=== PATIENT | female | born 1995 | race Two or more races ===

== ENCOUNTER 2025-05-11 11:29 | Emergency (ER) | payer BC, MEDICAID, SELFPAY ==
[2025-05-11 11:30] VITALS: BMI 36.8
[2025-05-11 12:12] VITALS: BP 128/78; PULSE 76; RESP 18; TEMP 36.9; O2SAT 98
--- NOTE | 2025-05-11 12:21 | EKG_ITS ---
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
--- NOTE | 2025-05-11 12:21 | XR_ITS ---
Examination: PA lateral chest 2 views TECHNIQUE: Upright PA lateral chest 2 views Date and time: May 11, 2025 1337 hours, comparison September 18, 2023 INDICATIONS: Shortness of breath chest pain beginning 3 days ago. FINDINGS: Normal heart size. Minor atelectasis versus early pneumonia right base, clinical correlation advised No pulmonary edema Intact osseous structures IMPRESSION: Atelectasis versus minor pneumonia right base, the appearance should be clinically correlated
--- NOTE | 2025-05-11 12:28 | PD.EDCHEST ---
ED Chest Pain RME/HPI General Chief Complaint: Chest Pain Stated Complaint: LEFT SIDE CHEST AND BACK PAIN X3DAYS Time Seen by Provider: 05/11/25 11:33 Source: patient Arrival date/time: 05/11/25 11:29 Mode of arrival: ambulatory Limitations: no limitations Related Data Home Medications ?Medication ?Instructions ?Recorded ?Confirmed medroxyprogesterone 10 mg tablet 10 mg PO DAILY 05/09/24 05/09/24 Previous Rx's ?Medication ?Instructions ?Recorded amoxicillin 875 mg-potassium 1 tab PO BID 7 days #14 tabs 05/11/25 clavulanate 125 mg tablet Allergies Allergy/AdvReac Type Severity Reaction Status Date / Time No Known Allergies Allergy Verified 05/11/25 11:33 Review of Systems Review of Systems Systems Reviewed: All systems reviewed, normal except as documented Constitutional Constitutional: Reports system reviewed and no additional complaints, except as documented, Denies fatigue, Denies fever(s), Denies headache(s) and Denies weakness Eyes Eyes: Reports system reviewed and no additional complaints, except as documented, Denies blurry vision and Denies change in vision ENT Ears, Nose, Mouth, and Throat: Reports system reviewed and no additional complaints, except as documented, Denies otalgia, Denies headache(s), Denies nasal congestion, Denies throat swelling and Denies vertigo Cardiovascular Cardiovascular: Reports system reviewed and no additional complaints, except as documented, Reports chest pain, Reports chest pain at rest, Reports chest pain with activity, Denies dyspnea and Denies dyspnea on exertion Respiratory Respiratory: Reports system reviewed and no additional complaints, except as documented, Denies chest congestion, Denies cough, Denies dyspnea, Denies dyspnea on exertion and Denies wheezing Gastrointestinal Gastrointestinal: Reports system reviewed and no additional complaints, except as documented, Denies abdominal pain, Denies cramping, Denies nausea and Denies vomiting Genitourinary Genitourinary: Reports system reviewed and no additional complaints, except as documented Musculoskeletal Musculoskeletal: Reports system reviewed and no additional complaints, except as documented and Denies back pain Integumentary/Breasts Skin/Breast: Reports system reviewed and no additional complaints, except as documented and Denies wounds Neurologic Neurologic: Reports system reviewed and no additional complaints, except as documented, Denies confusion, Denies headache(s), Denies lack of coordination, Denies vertigo and Denies weakness Psychiatric Psychiatric: Reports system reviewed and no additional complaints, except as documented, Denies anxiety, Denies confusion, Denies depression, Denies paranoia, Denies suicidal ideation and Denies tactile hallucinations Endocrine Endocrine: Reports system reviewed and no additional complaints, except as documented and Denies fatigue Hematologic/Lymphatic Hematologic/Lymphatic: Reports system reviewed and no additional complaints, except as documented and Denies lymphadenopathy Allergic/Immunologic Allergic/Immunologic: Reports system reviewed and no additional complaints, except as documented, Denies throat swelling, Denies urticaria and Denies wheezing Past Medical History Past Medical History NEUROLOGIC: Negative Neurological Disorders or Seizures CARDIAC: Negative Cardiac Disorders or Congestive Heart Failure RESPIRATORY: Negative Chronic Obstructive Pulmonary Disease (COPD) GASTROINTESTINAL: Negative Gastrointestinal Disorders GENITOURINARY: Negative Renal Disease REPRODUCTIVE: Positive Genital Herpes ENDOCRINE: Negative Diabetes Mellitus Type 1 or Diabetes Mellitus Type 2 HEMATOLOGIC: Negative Blood Disorders OTHER HISTORY: Negative Blood Transfusions, Anesthesia Reactions or Cancer Family History FAMILY HISTORY: Positive Family Cancer (mom lymphatic cancer) and Family Surgery (sister); Negative Family Anesthesia Reaction Social History SMOKING STATUS: Never smoker SUBSTANCE USE: does not use ED Exam General Limitations: Present no limitations General appearance: Present alert and in no apparent distress Head Head exam: Present atraumatic Eye Eye exam: Present normal appearance, PERRL and EOMI ENT ENT exam: Present normal exam, normal oropharynx and mucous membranes moist Neck Neck exam: Present normal inspection, full ROM and trachea midline Chest Chest inspection: Present normal inspection and symmetric chest wall rise Respiratory Respiratory exam: Present normal lung sounds bilaterally; Absent respiratory distress, wheezes, stridor, accessory muscle use or prolonged expiratory phase Cardiovascular Cardiovascular exam: Present regular rate, normal rhythm and normal heart sounds; Absent tachycardia Abdominal Exam Abdominal exam: Present soft and normal bowel sounds; Absent tenderness Extremities Exam Extremities exam: Present normal inspection and full ROM Back Exam Back exam: Present normal inspection and full ROM Neurological Exam Neurological exam: Present alert, oriented X3 and CN II-XII intact Psychiatric Psychiatric exam: Present normal affect and normal mood Skin Skin exam: Present warm, dry, intact and normal color Course Quality Measures none Orders Category Date Time Status EKG (ED ONLY) *Do not use* NOW Care 05/11/25 12:21 Completed EKG (ED Only) Stat Exams 05/11/25 12:21 Draft XR chest 2V Stat Exams 05/11/25 12:21 Completed B-Type Natriuretic Peptide Stat Lab 05/11/25 12:41 Completed CBC Stat Lab 05/11/25 12:41 Completed Comprehensive Metabolic Panel Stat Lab 05/11/25 12:41 Completed Troponin I Stat Lab 05/11/25 12:41 Completed Urinalysis, C/S if Indicated Stat Lab 05/11/25 13:22 Received Vital Signs Vital signs: Vital Signs Temperature 98.5 F 05/11/25 12:12 Pulse Rate 76 05/11/25 12:12 Respiratory Rate 18 05/11/25 12:12 Blood Pressure 128/78 05/11/25 12:12 Pulse Oximetry (%) 98 05/11/25 12:12 Oxygen Delivery Method Room Air 05/11/25 12:12 Chest Pain MDM Narrative MDM Narrative:: 30-year-old female with no known medical history presents to the emergency room with a chief complaint of left-sided chest pain and back pain x 3 days Patient is hemodynamically stable Physical examination shows clear bilateral lung sounds there is no wheezing stridor or any abnormal breath sound. The patient is not tachypneic tachycardic or febrile Patient is complaining of 8 out of 10 sternal chest pain. EKG shows normal sinus rhythm at [address] deviation CBC CMP troponin were all negative X-ray showed community-acquired pneumonia. Antibiotics sent to the patient's pharmacy Patient was discharged and educated to follow-up with primary care provider in the next 24 to 48 hours and return to the emergency room for any evidence of worsening signs or symptoms Patient data External records reviewed:: [facility] previous records Clinical information provided by:: patient Social determinants that could affect healthcare access:: none Patient has the following chronic illnesses:: No chronic illness How is presenting disease/condition affected by chronic disease/condition?: no chronic disease Evaluation data The following diagnostics were reviewed and interpreted by me:: lab results and radiology exam(s) Lab and/or radiology exams considered but not ordered:: Labs and radiology exams considered and ordered Interpretation Summary: Chest [id number]: Normal heart size. Minor atelectasis versus early pneumonia right base, clinical correlation advised No pulmonary edema Intact osseous structures IMPRESSION: Atelectasis versus minor pneumonia right base, the appearance should be clinically correlated Medications / Prescriptions Medications or Prescriptions considered but not ordered:: No medication given Medication administrations:: No medication given Consultations Consultation(s) initiated? (list below): No Diagnosis Chest Pain Differential Diagnosis: stable angina, atypical chest pain, st elevation myocardial infarction, chest pain and other (Community-acquired pneumonia) Most likely diagnosis given after review of the tests above:: Community-acquired pneumonia Admission Indicated Admission indicated?: not indicated Admission Request Was there a request for admission?: No Disposition Plan Disposition Plan: Discharge Discharge Attestation Discharge Attestation: The patient and all family members were given an opportunity to ask questions and understood the discharge instructions. Discharge instructions specifically effects, indications for sooner follow up or return to the emergency department, and the expected course of current diagnosis. Patient condition: Stable Discharge Plan Plan Patient Disposition: HOME (Self Care) Discharge Disposition comment: Stable Prescriptions/Referrals Prescriptions/Med Rec: New amoxicillin-pot clavulanate 875-125 mg tablet 1 tab PO BID 7 Days Qty: 14 0RF No Action medroxyprogesterone 10 mg tablet 10 mg PO DAILY Patient Comments: TAKE 1 TABLET BY MOUTH ONCE A DAY ON DAYS 14-28 EACH MONTH. Referrals: No Primary/Family,Physician [Primary Care Provider] - In 1 week Problem List Clinical Impression: Chest pain, Community acquired pneumonia Patient/Caregiver Discharge Instructions Education Materials: ED Pneumonia (Adult) Additional Instructions: Please follow-up with your primary care provider in the next 24 to 48 hours Your x-ray showed pneumonia. Antibiotics are sent to your pharmacy please pick it up and take it as indicated For any evidence of worsening signs or symptoms return to the emergency room immediately Print Language: Salvadorean Stand Alone Forms: Wen Award Info., Patient Portal Info Letter PA/AAMIR Supervising Physician PA/AAMIR Supervising Physician: Dr. Barrios
[2025-05-11 12:57] LABS: Basophils # (Auto) 0.0 Thou/mm3 (0.0-0.2); Basophils % (Auto) 0 % (0-2.5); Eosinophils # (Auto) 0.1 Thou/mm3 (0.0-0.5); Eosinophils % (Auto) 2 % (0-10); Hematocrit 36.4 % (36.0-46.0); Hemoglobin 12.4 g/dL (12.0-16.0); Immature Granulocytes Auto 0.03 Thou/mm3 (0.00-0.00); Lymphocytes # (Auto) 2.3 Thou/mm3 (1.0-4.8); Lymphocytes % (Auto) 28 % (10-50); Mean Corpuscular HGB Conc 34.1 g/dl (31.0-37.0); Mean Corpuscular Hemoglobin 32.0 pg (25.0-35.0); Mean Corpuscular Volume 94 fL (80-100); Monocytes # (Auto) 0.5 Thou/mm3 (0.0-0.8); Monocytes % (Auto) 6 % (0-12); Neutrophils # (Auto) 5.4 Thou/mm3 (1.8-7.7); Neutrophils % (Auto) 64 % (37-80); Nucleated Red Blood Cell # 0.00 Thou/mm3 (0.00-0.00); Nucleated Red Blood Cell % 0 /100 WBC (0); Platelet Count 202 Thou/mm3 (140-440); RDW Standard Deviation 42.8 fL (36.4-46.3); Red Blood Count 3.87 Miln/mm3 (4.00-5.20); White Blood Count 8.3 Thou/mm3 (3.6-11.0)
[2025-05-11 13:15] LABS: B-Type Natriuretic Peptide < 20 pg/mL (0-100)
[2025-05-11 13:28] LABS: Alanine Aminotransferase 11 U/L (10-49); Albumin, Serum 4.2 gm/dL (3.5-5.0); Albumin/Globulin Ratio 1.3 (1.2-2.2); Alkaline Phosphatase 53 U/L (46-116); Anion Gap 6 (7-16); Aspartate Amino Transferase 14 U/L (0-34); BUN/Creatinine Ratio 10 Ratio (12-20); Bilirubin,Total 1.0 mg/dL (0.3-1.2); Blood Urea Nitrogen 7 mg/dL (9-23); Calcium 9.6 mg/dL (8.3-10.6); Calcium (Corrected) 9.6 mg/dL (8.5-10.1); Carbon Dioxide 29.4 mMol/L (20.0-31.0); Chloride 104 mMol/L (98-107); Creatinine (Component) 0.7 mg/dL (0.6-1.3); Estimated Creatinine Clearance 134.5 mL/min (>60); Globulin 3.2 gm/dL (2.3-3.5); Glucose 83 mg/dL (74-106); Osmolality,Calculated 274 (275-295); Potassium 4.0 mMol/L (3.4-5.1); Sodium 139 mMol/L (136-145); Total Protein 7.4 gm/dL (5.7-8.2); Troponin I < 0.002 ng/mL (0.0-0.045); eGFR > 60 See Note
[2025-05-11 13:32] LABS: Collection Type, Urine Clean Catch
[2025-05-11 13:58] LABS: Bilirubin,Urine Negative (Negative); Blood,Urine Negative (Negative); Clarity,Urine Clear (Clear/Hazy); Color,Urine Lt-Yellow (Lt Yel-Yel); Culture Indicated,Urine Not Indicated; Glucose, Urine Negative (Negative); Hyaline Casts,Urine < 1 /hpf (0-1); Ketones,Urine Negative (Negative); Leukocyte Esterase,Urine Negative (Negative); Nitrite,Urine Negative (Negative); PH,Urine 6.0 (5.0-7.0); Protein,Urine Negative (Neg - Trace); RBC,Urine 2 /hpf (0-3); Specific Gravity,Urine 1.020 (1.001-1.035); Squamous Epithelial Cell,Urine 1 /hpf (0-5); Urobilinogen,Urine Negative mg/dL (0.0-1.0); WBC,Urine 1 /hpf (0-5)
== END 2025-05-11 14:48 | disposition home or self-care (01) ==
PROVIDERS: Nurse Practitioner Family; Emergency Provider Emergency Medicine
DX: J18.9 Pneumonia, unspecified organism (principal)
CPT/HCPCS: 36415; 71046; 80053; 81001; 83880; 84484; 85025; 93005; 99283

== ENCOUNTER 2025-05-12 08:58 | Emergency (ER) | payer BC, MEDICAID, SELFPAY ==
--- NOTE | 2025-05-12 09:11 | XR_ITS ---
Examination: PA lateral chest 2 views TECHNIQUE: Upright PA lateral chest 2 views Date and time: May 12, 2025 0916 hours, comparison 05/11/2025 INDICATIONS: Chest pain today. FINDINGS: Suspicious for early pneumonia in the right middle lobe on the lateral view Normal heart size No pulmonary edema IMPRESSION: Suspicious for early pneumonia in the right middle lobe on the lateral view
--- NOTE | 2025-05-12 09:11 | EKG_ITS ---
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
--- NOTE | 2025-05-12 09:11 | PD.EDRME ---
Rapid Medical Screening Exam [facility] Arrival date/time: 05/12/25 08:58 30-year-old female with no known medical history presents to the emergency room with a chief complaint of 8 out of 10 left-sided sternal chest pain that radiates to her upper back. The patient is also having some left upper quadrant abdominal pain. I have greeted and performed a focused initial assessment of this patient. A comprehensive ED assessment and evaluation of the patient, analysis of all test results, and completion of the medical decision making process will be conducted by additional ED providers. Chief Complaint: Shortness of Breath/Dyspnea Vital signs reviewed by provider: Yes
[2025-05-12 09:12] VITALS: BP 108/71; PULSE 86; RESP 18; TEMP 37.1; O2SAT 96; BMI 36.8
[2025-05-12 09:42] LABS: Collection Type, Urine Clean Catch
[2025-05-12 09:49] LABS: Basophils # (Auto) 0.0 Thou/mm3 (0.0-0.2); Basophils % (Auto) 0 % (0-2.5); Eosinophils # (Auto) 0.1 Thou/mm3 (0.0-0.5); Eosinophils % (Auto) 1 % (0-10); Hematocrit 39.2 % (36.0-46.0); Hemoglobin 13.2 g/dL (12.0-16.0); Immature Granulocytes Auto 0.03 Thou/mm3 (0.00-0.00); Lymphocytes # (Auto) 1.8 Thou/mm3 (1.0-4.8); Lymphocytes % (Auto) 25 % (10-50); Mean Corpuscular HGB Conc 33.7 g/dl (31.0-37.0); Mean Corpuscular Hemoglobin 31.4 pg (25.0-35.0); Mean Corpuscular Volume 93 fL (80-100); Monocytes # (Auto) 0.3 Thou/mm3 (0.0-0.8); Monocytes % (Auto) 5 % (0-12); Neutrophils # (Auto) 4.8 Thou/mm3 (1.8-7.7); Neutrophils % (Auto) 68 % (37-80); Nucleated Red Blood Cell # 0.00 Thou/mm3 (0.00-0.00); Nucleated Red Blood Cell % 0 /100 WBC (0); Platelet Count 201 Thou/mm3 (140-440); RDW Standard Deviation 42.5 fL (36.4-46.3); Red Blood Count 4.20 Miln/mm3 (4.00-5.20); White Blood Count 7.1 Thou/mm3 (3.6-11.0)
[2025-05-12 10:08] LABS: B-Type Natriuretic Peptide 27 pg/mL (0-100)
[2025-05-12 10:10] LABS: Alanine Aminotransferase 12 U/L (10-49); Albumin, Serum 4.6 gm/dL (3.5-5.0); Albumin/Globulin Ratio 1.3 (1.2-2.2); Alkaline Phosphatase 54 U/L (46-116); Anion Gap 7 (7-16); Aspartate Amino Transferase 18 U/L (0-34); BUN/Creatinine Ratio 10 Ratio (12-20); Bilirubin,Total 1.1 mg/dL (0.3-1.2); Blood Urea Nitrogen 7 mg/dL (9-23); Calcium 9.8 mg/dL (8.3-10.6); Calcium (Corrected) 9.8 mg/dL (8.5-10.1); Carbon Dioxide 27.4 mMol/L (20.0-31.0); Chloride 105 mMol/L (98-107); Creatinine (Component) 0.7 mg/dL (0.6-1.3); Estimated Creatinine Clearance 134.5 mL/min (>60); Globulin 3.5 gm/dL (2.3-3.5); Glucose 88 mg/dL (74-106); Magnesium 1.9 mg/dL (1.6-2.6); Osmolality,Calculated 274 (275-295); Potassium 3.8 mMol/L (3.4-5.1); Sodium 139 mMol/L (136-145); Total Protein 8.1 gm/dL (5.7-8.2); Troponin I < 0.002 ng/mL (0.0-0.045); eGFR > 60 See Note
[2025-05-12 10:13] LABS: Bilirubin,Urine Negative (Negative); Blood,Urine 1+ (Negative); Clarity,Urine Clear (Clear/Hazy); Color,Urine Lt-Yellow (Lt Yel-Yel); Culture Indicated,Urine Not Indicated; Glucose, Urine Negative (Negative); Ketones,Urine Negative (Negative); Leukocyte Esterase,Urine Negative (Negative); Nitrite,Urine Negative (Negative); PH,Urine 6.0 (5.0-7.0); Protein,Urine Negative (Neg - Trace); RBC,Urine 3 /hpf (0-3); Specific Gravity,Urine 1.021 (1.001-1.035); Squamous Epithelial Cell,Urine 8 /hpf (0-5); Urobilinogen,Urine Negative mg/dL (0.0-1.0); WBC,Urine 1 /hpf (0-5)
[2025-05-12 10:24] LABS: INR 1.0 (0.9-1.3); Partial Thromboplastin Time 26.3 Seconds (22.0-36.0); Prothrombin Time 11.4 Seconds (9.0-12.2)
--- NOTE | 2025-05-12 11:43 | EDNOTE_ITS ---
ED General RME/HPI General Chief complaint: Shortness of Breath/Dyspnea Stated complaint: SOB, CHEST PAIN, L) FLANK PAIN, LIGHTHEADED, FEVER Time Seen by Provider: 05/12/25 11:29 Arrival date/time: 05/12/25 08:58 CC: Left flank/side pain with radiation up to the left shoulder and down into the left anterior chest and breast. HPI 2 days ago progressive increase in severity. With patient was seen yesterday for the same complaint was started antibiotics for pneumonia. Patient denies productive cough fever chills shortness of breath or difficulty breathing but states she cannot take a deep breath without significant chest pain. Patient states she is consistently tender when she sneezes coughs or is torso rotation. RME / HPI RME / HPI narrative: 05/12/25 08:58 30-year-old female with no known medical history presents to the emergency room with a chief complaint of 8 out of 10 left-sided sternal chest pain that radiates to her upper back. The patient is also having some left upper quadrant abdominal pain. I have greeted and performed a focused initial assessment of this patient. A comprehensive ED assessment and evaluation of the patient, analysis of all test results, and completion of the medical decision making process will be conducted by additional ED providers. Related Data Home Medications ?Medication ?Instructions ?Recorded ?Confirmed medroxyprogesterone 10 mg tablet 10 mg PO DAILY 05/09/24 Previous Rx's ?Medication ?Instructions ?Recorded amoxicillin 875 mg-potassium 1 tab PO BID 7 days #14 t abs 05/11/25 clavulanate 125 mg tablet meloxicam 7.5 mg tablet 7.5 mg PO QDAY PRN pain (sca le 05/12/25 score 4-6) #10 tabs Allergies Allergy/AdvReac Type Severity Reaction Status Date / Time No Known Allergies Allergy Verified 05/12/25 09:01 Review of Systems Review of Systems Narrative Review of Systems: GEN: No fever, no chills, no weight loss EYES: No discharge, no visual changes, no pain HEENT: No ear pain, no congestion, no sore throat PULM: No shortness of breath, no cough, no congestion CV: + chest pain, no dyspnea on exertion, no palpitations GI: No nausea, no vomiting, no diarrhea, no pain, no constipation : No frequency, no urgency, no dysuria MUSC/SKEL: No joint pain, no back pain SKIN: No rash PSYCH: No hallucinations, no depression HEME/LYMPH: No easy bleeding or bruising tendencies NEURO: No weakness, no headache Past Medical History Past Medical History NEUROLOGIC: Negative Neurological Disorders or Seizures CARDIAC: Negative Cardiac Disorders or Congestive Heart Failure RESPIRATORY: Negative Chronic Obstructive Pulmonary Disease (COPD) GASTROINTESTINAL: Negative Gastrointestinal Disorders GENITOURINARY: Negative Renal Disease REPRODUCTIVE: Positive Genital Herpes ENDOCRINE: Negative Diabetes Mellitus Type 1 or Diabetes Mellitus Type 2 HEMATOLOGIC: Negative Blood Disorders OTHER HISTORY: Negative Blood Transfusions, Anesthesia Reactions or Cancer Family History FAMILY HISTORY: Positive Family Cancer (mom lymphatic cancer) and Family Surgery (sister); Negative Family Anesthesia Reaction Social History SMOKING STATUS: Never smoker SUBSTANCE USE: does not use ED Exam Narrative Physical exam: [General: Obese, in moderate discomfort but not in any acute distress Head normocephalic HEENT: Within acceptable limits Neck is supple nontender Chest equal chest rise nontender to palpation Respiratory: Clear to auscultation no wheezes crackles or rubs CV: Rate rhythm is regular no murmurs rubs or clicks Abdomen is distended secondary to body habitus soft nontender no masses positive bowel sounds all 4 quadrants Back: No CVA tenderness no spinous process tenderness from cervical spine thoracic and lumbar spine Skin: Intact no petechiae rash induration ulceration or crepitus Extremities: Moving all extremity against resistance cap refill less than 2 seconds neurosensory intact Neuro: Awake alert oriented x3 Glascow coma 15 no focal deficits] Course Course Course Narrative: This patient is now worsening in her symptoms in spite of medication from yesterday although the patient is not short of breath with this but has considerable more chest pain and stable vital signs at once elective scan the chest to determine if there is any additional findings that is contributing to her pain. CT chest abdomen pelvis without contrast shows no acute finding troponin is negative EKG is unremarkable patient be discharged home with chest wall pain Quality Measures none Orders Category Date Time Status EKG (ED ONLY) *Do not use* NOW Care 05/12/25 09:[address] abdomen pelvis wo con Stat Exams 05/12/25 15:[address] chest wo con Stat Exams 05/12/25 11:49 Completed EKG (ED Only) Stat Exams 05/12/25 09:11 Draft XR chest 2V Stat Exams 05/12/25 09:11 Completed Amylase Stat Lab 05/12/25 09:37 Completed B-Type Natriuretic Peptide Stat Lab 05/12/25 09:37 Completed CBC Stat Lab 05/12/25 09:37 Completed Comprehensive Metabolic Panel Stat Lab 05/12/25 09:37 Completed HCG Qualitative,Urine Stat Lab 05/12/25 09:30 Completed Magnesium Stat Lab 05/12/25 09:37 Completed Partial Thromboplastin Time Stat Lab 05/12/25 09:37 Completed Prothrombin Time with INR Stat Lab 05/12/25 09:37 Completed Troponin I Stat Lab 05/12/25 09:37 Completed Urinalysis, C/S if Indicated Stat Lab 05/12/25 09:30 Completed oxyCODONE/APAP 5/325 [Percocet 5/325] Med 05/12/25 11:41 Discontinued 1 tab PO X1 ONE oxyCODONE/APAP 5/325 [Percocet 5/325] Med 05/12/25 15:42 Discontinued 1 tab PO X1 ONE Vital Signs Vital signs: Vital Signs Temperature 98.8 F 05/12/25 09:12 Pulse Rate 86 05/12/25 09:12 Respiratory Rate 18 05/12/25 09:12 Blood Pressure 108/71 05/12/25 09:12 Pulse Oximetry (%) 96 05/12/25 09:12 Discharge Plan Plan Patient Disposition: HOME (Self Care) Prescriptions/Referrals Prescriptions/Med Rec: New meloxicam 7.5 mg tablet 7.5 mg PO QDAY PRN (Reason: pain (scale score 4-6)) Qty: 10 0RF No Action medroxyprogesterone 10 mg tablet 10 mg PO DAILY Patient Comments: TAKE 1 TABLET BY MOUTH ONCE A DAY ON DAYS 14-28 EACH MONTH. 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 Follow-up with your primary care doctor. Education Materials: ED Chest Pain, Uncertain Cause Print Language: Bulgarian Stand Alone Forms: Wen Award Info., Patient Portal Info Letter, Work/School Release PA/AAMIR Supervising Physician JEREMIE Supervising Physician: Akira Anderson ENP MDM Clinical Information Provided by: patient Medical Records reviewed [facility] Medical Records additional comments: Patient was seen here yesterday and prescribed antibiotics for pneumonia. Meds/Rx considered, not ordered None Labs/Rad/Tests considered, not ordered None Chronic Illness/Social Conditions which may negatively complicate care or outcome(s)-explain: None or not applicab le EKG Interpretation EKG #1: EKG Interpretation: EKG performed abdomen 915 shows a ventricular rate of 87 DC interval 133 QRS of 92 QTc of 413 this is sinus rhythm. Labs Labs: interpreted by in Lab(s) Interpretation(s): CBC shows no acute leukocytosis anemia thrombocytopenia CMP shows no acute electrolyte imbalances renal impairment transaminitis or T. bili elevation Coags within acceptable limits. BNP and troponin are unremarkable Imaging Imaging interpretation: none Imaging Interpretation(s): CT abdomen pelvis shows no acute finding requires emergent or immediate intervention. CT chest shows minor atelectasis on the right lobe but no pneumonia. Medication Administration(s) none Medication Administration History Discontinued Medications Oxycodone/Acetaminophen (Oxycodone/Apap 5/325 Tablet) 1 tab PO X1 ONE Stop: 05/12/25 11:42 Last Admin: 05/12/25 11:45 Dose: 1 tab Documented By: ROSA Oxycodone/Acetaminophen (Oxycodone/Apap 5/325 Tablet) 1 tab PO X1 ONE Stop: 05/12/25 15:43 Last Admin: 05/12/25 15:56 Dose: 1 tab Documented By: EVELYN Diagnosis Differential Diagnosis ED Complaint MDM: Pleural effusion pneumonia chest wall pain pancreatitis urolithiasis
--- NOTE | 2025-05-12 11:49 | XR_ITS ---
Examination: CT chest, without intravenous contrast. Sagittal and coronal 2-D reconstructions. Exam date and time: May 12, 2025 1343 hours INDICATIONS: Chest pain shortness of breath today CTDI:vol (mGy) 21.2 DLP: (mGycm) 818 Technique: Multiple 3.0 mm axial sections of the chest to been obtained. Bone and lung density settings are obtained. Sagittal and coronal 2-D reconstructions have been obtained. Low dose protocols were performed. One or more of the following dose reduction techniques were used; automated exposure control, adjustment of the mA and/or KV according to patient size, use of iterative reconstruction technique. Findings: No thoracic aortic aneurysm dilatation Pulmonary artery segments are not enlarged. No paratracheal tracheobronchial or bronchopulmonary adenopathy. Atelectasis in the right lower lobe No pneumonia or pulmonary edema, pleural disease or pulmonary nodules Liver is irregular in contour with fatty infiltration no focal liver lesions Gallstones No hydronephrosis The osseous structures are intact IMPRESSION: Minor atelectasis in the right lower lobe No pneumonia pulmonary edema pleural disease or pulmonary nodules Cirrhosis versus primary hepatocellular disease Cholelithiasis
[2025-05-12 12:43] LABS: HCG Qualitative,Urine Negative
[2025-05-12 13:22] LABS: Amylase 57 U/L (30-118)
--- NOTE | 2025-05-12 15:42 | XR_ITS ---
Examination: CT abdomen and pelvis without contrast. Coronal 3-D reconstructions. Sagittal 2-D reconstructions. Date and time of exam:May 12, 2025 1407 hours INDICATIONS: Left upper abdominal pain today, comparison March 12, 2022 CTDI: vol (mGy): 11.5 DLP: (mGycm): 699 Technique: Axial images of the abdomen have been obtained, 3 mm slice thickness Intravenous contrast material has not been administered. Low dose protocols were performed. One or more of the following dose reduction techniques were used; automated exposure control, adjustment of the mA and/or KV according to patient size, use of iterative reconstruction technique. Findings: No focal liver or splenic lesions Gallstones No pancreatic or adrenal mass No renal or ureteral calculi, no hydronephrosis 23 mm fat-containing umbilical hernia Aorta normal size Normal appendix No bowel obstruction No diverticulitis Retroverted uterus No bladder mass Moderate osteopenia IMPRESSION: No acute process in the abdomen or pelvis Cholelithiasis
--- NOTE | 2025-05-12 15:49 | PC.NURSE ---
PT CALLED FOR CT AND NO ANSWER
== END 2025-05-12 16:48 | disposition home or self-care (01) ==
PROVIDERS: Nurse Practitioner Family; Registered Nurse General Practice; Emergency Provider Emergency Medicine; PCP Nurse Practitioner Family
DX: R07.9 Chest pain, unspecified (principal)
CPT/HCPCS: 36415; 71046; 71250; 74176; 80053; 81001; 81025; 82150; 83735; 83880; 84484; 85025; 85610; 85730; 93005; 99283; A9270